=== PATIENT | female | born 1945 | race Caucasian/White ===

== ENCOUNTER 2017-11-04 09:56 | Outpatient (CLI) | payer MEDICARE, BC | END 2017-11-04 09:57 | disposition home or self-care (01) | LOC: BICMAMMO 09:56 | PROVIDERS: ATTEND Family Medicine | DX: Z12.31 Encounter for screening mammogram for malignant neoplasm of breast (principal) | CPT/HCPCS: 77063; 77067 ==

== ENCOUNTER 2018-02-23 12:54 | Outpatient (CLI) | payer MEDICARE, BC ==
--- NOTE | 2018-02-23 16:36 | RAD ---
TWO VIEW CHEST: Indication: Dyspnea. FINDINGS: Minimal linear densities at the lower lung zones suggest mild interstitial prominence versus areas of parenchymal scar. There is no evidence of pleural effusion, consolidation, or pneumothorax. Cardiac silhouette is normal in size. Mild thoracic kyphosis and osseous degenerative change present. IMPRESSION: Minimal linear densities at the lower lung zones. Otherwise, no significant abnormality. POS: [facility]
== END 2018-02-23 12:55 | disposition home or self-care (01) ==
LOC: RAD 12:54
PROVIDERS: ATTEND Internal Medicine
DX: R06.00 Dyspnea, unspecified (principal); J98.4 Other disorders of lung
CPT/HCPCS: 71046

== ENCOUNTER 2018-03-25 12:46 | Outpatient (CLI) | payer MEDICARE, BC | END 2018-03-25 12:47 | disposition home or self-care (01) | LOC: CP 12:46 | PROVIDERS: ATTEND Internal Medicine | DX: R06.09 Other forms of dyspnea (principal) | CPT/HCPCS: 94060; 94727; 94729 ==

== ENCOUNTER 2018-05-12 16:37 | Emergency (ER) | payer MEDICARE, BC ==
--- NOTE | 2018-05-12 18:13 | RAD ---
RADIOGRAPH RIGHT ANKLE 3 VIEWS: 05/12/18 at 5:20 p.m. HISTORY: 73-year-old female status post acute traumatic injury to the right ankle. FINDINGS: No acute fracture. Ankle mortise is congruent. No subluxation or dislocation. Soft tissue edema diffu sely. Small well corticated ossific fragment abuts the medial malleolus where there is an irregular, corticated osseous defect. IMPRESSION: 1. No acute fracture. 2. Findings suggestive of old fracture at distal aspect of medial malleolus. POS: [facility]
--- NOTE | 2018-05-12 18:25 | RAD ---
RADIOGRAPH RIGHT FOOT 3 VIEWS: 05/12/18 at 5:24 p.m. HISTORY: 73-year-old female status post acute traumatic injury to the right foot. FINDINGS: There is no dislocation. No evidence of acute fracture. IMPRESSION: Negative. POS: [facility]
== END 2018-05-12 18:29 | disposition home or self-care (01) ==
LOC: SCSER 16:37
DX: S93.401A Sprain of unspecified ligament of right ankle, initial encounter (principal); I10 Essential (primary) hypertension; E78.5 Hyperlipidemia, unspecified; X50.9XXA Other and unspecified overexertion or strenuous movements or postures, initial encounter

== ENCOUNTER 2018-11-24 10:38 | Outpatient (CLI) | payer MEDICARE, BC ==
--- NOTE | 2018-11-24 11:45 | MMO ---
Bilateral MAMMO Bilat Screen [facility]. CLINICAL HISTORY: Patient is 73 years old and is seen for screening. The patient has no family history of breast cancer. The patient has no personal history of cancer. VIEWS: The views performed were: bilateral craniocaudal with tomosynthesis and bilateral mediolateral oblique with tomosynthesis. FILMS COMPARED: The present examination has been compared to prior imaging studies performed at [facility] on 10/11/2014, 11/01/2015, 10/31/2016 and 11/04/2017. MAMMOGRAM FINDINGS: There are scattered fibroglandular densities. Benign calcifications are noted bilaterally. There are no suspicious masses, suspicious calcifications, or new areas of architectural distortion. IMPRESSION: THERE IS NO MAMMOGRAPHIC EVIDENCE OF MALIGNANCY. A ROUTINE FOLLOW-UP MAMMOGRAM IN 1 YEAR IS RECOMMENDED. THE RESULTS OF THIS EXAM WERE SENT TO THE PATIENT. ACR BI-RADS Category 2 - Benign finding MAMMOGRAPHY NOTE: 1. A negative mammogram report should not delay a biopsy if a dominant of clinically suspicious mass is present. 2. Approximately 10% to 15% of breast cancers are not detected by mammography. 3. Adenosis and dense breasts may obscure an underlying neoplasm. Reported by: ARSEN AVILA MD Electonically Signed: [id number]
== END 2018-11-24 10:39 | disposition home or self-care (01) ==
LOC: BICMAMMO 10:38
PROVIDERS: ATTEND Family Medicine
DX: Z12.31 Encounter for screening mammogram for malignant neoplasm of breast (principal)
CPT/HCPCS: 77063; 77067

== ENCOUNTER 2020-01-17 10:45 | Outpatient (CLI) | payer MEDICARE, BC ==
--- NOTE | 2020-01-17 11:26 | MMO ---
Bilateral MAMMO Bilat Screen [facility]. CLINICAL HISTORY: Patient is 75 years old and is seen for screening. The patient has no family history of breast cancer. The patient has no personal history of cancer. VIEWS: The views performed were: bilateral craniocaudal with tomosynthesis and bilateral mediolateral oblique with tomosynthesis. FILMS COMPARED: The present examination has been compared to prior imaging studies performed at [facility] on 11/01/2015, 10/31/2016, 11/04/2017 and 11/24/2018. This study has been interpreted with the assistance of computer-aided detection. MAMMOGRAM FINDINGS: There are scattered fibroglandular densities. There are benign appearing calcifications seen in both breasts. There are no suspicious masses, suspicious calcifications, or new areas of architectural distortion. IMPRESSION: THERE IS NO MAMMOGRAPHIC EVIDENCE OF MALIGNANCY. A ROUTINE FOLLOW-UP MAMMOGRAM IN 1 YEAR IS RECOMMENDED. THE RESULTS OF THIS EXAM WERE SENT TO THE PATIENT. ACR BI-RADS Category 2 - Benign finding MAMMOGRAPHY NOTE: 1. A negative mammogram report should not delay a biopsy if a dominant of clinically suspicious mass is present. 2. Approximately 10% to 15% of breast cancers are not detected by mammography. 3. Adenosis and dense breasts may obscure an underlying neoplasm. Reported by: NIDHI SMITH MD Electonically Signed: [id number]
== END 2020-01-17 10:46 | disposition home or self-care (01) ==
LOC: BICMAMMO 10:45
PROVIDERS: ATTEND Family Medicine
DX: Z12.31 Encounter for screening mammogram for malignant neoplasm of breast (principal)
CPT/HCPCS: 77063; 77067